=== PATIENT | female | born 2000 | race Caucasian/White ===

== ENCOUNTER 2019-04-03 00:35 | Emergency (ER) | payer OTHER ==
--- NOTE | 2019-04-03 00:46 | ED ---
Substance Abuse/Use - HPI Summary HPI Summary: LEVEL 5 CAVEAT: HPI Limited due to patient intoxication. This patient is a 18 year old female presenting to [facility] with a chief complaint of ETOH intoxication. The patient was found in [facility]. She is not responding to questions. - History Of Current Complaint Stated Complaint: ETOH PER EMS Hx Obtained From: EMS Hx From Patient Unobtainable Due To: Altered Mental Status - Allergies/Home Medications Allergies/Adverse Reactions: Allergies Allergy/AdvReac Type Severity Reaction Status Date / Time Unable to Assess Allergy Verified 04/03/19 00:46 Home Medications: Home Medications Unobtainable 04/03/19 [History Confirmed 04/03/19] PMH/Surg Hx/FS Hx/Imm Hx - Additional Comments History Additional Comments: LEVEL 5 CAVEAT: PMH Limited due to patient intoxication. Review of Systems - ROS Summary Review of Systems Summary: LEVEL 5 CAVEAT: ROS Limited due to patient intoxication. Neurological: Other - AMS due to ETOH All Other Systems Reviewed And Are Negative: No Physical Exam - Summary Physical Exam Summary: Appearance: Well-appearing, Well-nourished, lying in bed comfortably Skin: Warm, dry, no obvious rash Eyes: sclera anicteric, no conjunctival pallor ENT: mucous membranes moist, pharynx appears normal Neck: Supple, nontender Respiratory: Clear to auscultation, no signs of respiratory distress Cardiovascular: Normal S1, S2. No murmurs. Normal distal pulses in tibial and radial bilaterally. Abdomen: Soft, nontender, normal active bowel sounds present Musculoskeletal: Normal, Strength/ROM Intact Neurological: Responds to verbal stimuli, but does not answer questions or follow commands. Psychiatric: affect is normal, does not appear anxious or depressed Triage Information Reviewed: Yes Vital Signs Reviewed: Yes Completion Of Physical Exam Limited Due To: Altered Mental Status Diagnostics - Laboratory Lab Statement: Any lab studies that have been ordered have been reviewed, and results considered in the medical decision making process. - EKG 2245 Cardiac Rate: Bradycardia - 45 BPM EKG Rhythm: Sinus Bradycardia Course/Dx - Course Course Of Treatment: This patient is a 18 year old female brought in by presenting to [facility] with a chief complaint of ETOH intoxication. The patient will be signed out to Dr. Ortega at shift change pending sobriety. - Diagnoses Provider Diagnoses: Alcohol intoxication Discharge ED - Sign-Out/Discharge Documenting (check all that apply): Sign-Out Patient Signing out patient TO: Will Ortega - Pending sobriety at shift change 0700. Patient Received Moderate/Deep Sedation with Procedure: No - Discharge Plan Condition: Stable Disposition: HOME Patient Education Materials: Alcohol Intoxication (ED) Referrals: [facility] [Outside] - 3 Days Additional Instructions: Follow up with [facility] within 3 days. Return to emergency department for new or worsening symptoms. - Billing Disposition and Condition Condition: STABLE Disposition: Home - Attestation Statements Document Initiated by Dylanibe: Yes Documenting Scribe: Trip Brown Provider For Whom Jeannette is Documenting (Include Credential): Will Villarreal MD Scribe Attestation: Trip Paniagua scribed for Will Villarreal MD on 04/04/19 at 0407. Scribe Documentation Reviewed: Yes Provider Attestation: The documentation as recorded by the Trip maria accurately reflects the service I personally performed and the decisions made by me, Will Villarreal MD Status of Scribe Document: Viewed
--- NOTE | 2019-04-03 07:52 | ED ---
Progress - Progress Note Progress Note: Patient signed out from Dr. Villarreal to Dr. Ortega upon shift change at 07:00 on 04/03/19. Patient pending sobriety test. Course/Dx - Course Course Of Treatment: Ms. Alvarez was awake and clinically sober about 9 AM. She is going to go home with sober friends. - Diagnoses Provider Diagnoses: Alcohol intoxication Discharge ED - Sign-Out/Discharge Documenting (check all that apply): Patient Departure - discharge Patient Received Moderate/Deep Sedation with Procedure: No - Discharge Plan Condition: Stable Disposition: HOME Patient Education Materials: Alcohol Intoxication (ED) Referrals: [facility] [Outside] - 3 Days Additional Instructions: Follow up with [facility] within 3 days. Return to emergency department for new or worsening symptoms. - Billing Disposition and Condition Condition: STABLE Disposition: Home - Attestation Statements Document Initiated by Dylanibe: Yes Documenting Scribe: Cindy Vallecillo Provider For Whom Scribe is Documenting (Include Credential): Will Ortega MD Scribe Attestation: Cindy Paniagua scribed for Will Ortega MD on 04/03/19 at 0859. Scribe Documentation Reviewed: Yes Provider Attestation: The documentation as recorded by the Cindy maria accurately reflects the service I personally performed and the decisions made by Will sarmiento MD Status of Scribe Document: Viewed
[2019-04-03 08:35] VITALS: BP 108/68
== END 2019-04-03 09:24 | disposition home or self-care (01) ==
LOC: ED 00:35
DX: F10.129 Alcohol abuse with intoxication, unspecified (principal); R00.1 Bradycardia, unspecified
CPT/HCPCS: 99282

== ENCOUNTER 2019-08-19 22:51 | Emergency (ER) | payer OTHER ==
[2019-08-19 23:05] VITALS: BP 148/88
--- NOTE | 2019-08-19 23:17 | ED ---
Lower Extremity - HPI Summary HPI Summary: 19-year-old female with no significant past medical history presents to the emergency department today complaining of left ankle swelling and pain. Patient states she recently bought a new parishes which gave her blister. She states shortly after this blister developed she noticed the medial aspect of her left ankle began swelling and becoming more painful. Patient has full range of motion of her ankle bilaterally and is complaining of one out of 10 pain. There is noted swelling to left ankle with no evidence of erythema. The patient otherwise feels well and denies fever, chest pain, abdominal pain, pain with urination, rash. - History of Current Complaint Chief Complaint: EDExtremityLower Stated Complaint: SWOLLEN LEFT ANKLE PER PT Time Seen by Provider: 08/19/19 23:17 Hx Obtained From: Patient Onset of Pain: Days Onset/Duration: Days Severity Initially: Mild Severity Currently: Mild Pain Intensity: 1 Pain Scale Used: 0-10 Numeric Timing: Constant Location: Is Discrete @ - Left ankle Character Of Pain: Aching Associated Signs And Symptoms: Positive: Swelling, Redness Aggravating Factor(s): Standing, Ambulation, Movement, Weight Bearing, Stairs Alleviating Factor(s): Rest, Elevation Able to Bear Weight: Yes - Allergies/Home Medications Allergies/Adverse Reactions: Allergies Allergy/AdvReac Type Severity Reaction Status Date / Time No Known Allergies Allergy Verified 08/19/19 23:03 PMH/Surg Hx/FS Hx/Imm Hx Infectious Disease History: No Infectious Disease History: Reports: Traveled Outside the [place] in Last 30 Days - Social History Alcohol Use: Occasionally Substance Use Type: Reports: None Smoking Status (MU): Unknown if Ever Smoked Review of Systems Constitutional: Negative Eyes: Negative ENT: Negative Cardiovascular: Negative Respiratory: Negative Gastrointestinal: Negative Genitourinary: Negative Positive: Myalgia, Edema Skin: Negative Neurological: Negative Psychological: Normal All Other Systems Reviewed And Are Negative: Yes Physical Exam - Summary Physical Exam Summary: Mild edema and eryrhema noted to the left ankle superior to the medial malleolus. Tenderness and mild edema noted with palpation of this area. Triage Information Reviewed: Yes Vital Signs On Initial Exam: Initial Vitals Temp Pulse Resp BP Pulse Ox 98.6 F 78 16 148/88 100 08/19/19 23:01 08/19/19 23:01 08/19/19 23:01 08/19/19 23:01 08/19/19 23:01 Vital Signs Reviewed: Yes Appearance: Positive: Well-Appearing, No Pain Distress, Well-Nourished Skin: Positive: Warm, Skin Color Reflects Adequate Perfusion Eyes: Positive: EOMI, JACQUES ENT: Positive: Hearing grossly normal Respiratory/Lung Sounds: Positive: Clear to Auscultation, Breath Sounds Present Cardiovascular: Positive: RRR, S1, S2 Musculoskeletal: Positive: Strength/ROM Intact Neurological: Positive: Sensory/Motor Intact, Alert, Oriented to Person Place, Time, Normal Gait, Facial Symmetry, Speech Normal Psychiatric: Positive: Normal, Affect/Mood Appropriate AVPU Assessment: Alert Procedures - Sedation Patient Received Moderate/Deep Sedation with Procedure: No Diagnostics - Vital Signs Vital Signs Temp Pulse Resp BP Pulse Ox 08/19/19 23:01 98.6 F 78 16 148/88 100 - Laboratory Lab Statement: Any lab studies that have been ordered have been reviewed, and results considered in the medical decision making process. Lower Extremity Course/Dx - Course Course Of Treatment: Pt evaluated for left ankle swelling. Vitals noted and stable. PE and hostory consistent with mild abscess of left ankle. Area not able to be drained. PT given antibiotics, doxycycline BID for symptoms and told to take ibuprofen for pain. PT discharged with outpatient followup. - Diagnoses Differential Diagnosis/HQI/PQRI: Positive: Cellulitis, Contusion, Fracture ( Closed), Infection, Sprain, Strain Provider Diagnoses: Ankle pain, left Discharge ED - Sign-Out/Discharge Documenting (check all that apply): Patient Departure - Discharge Plan Condition: Stable Disposition: HOME Prescriptions: DOXYcycline CAP(*) [DOXYcycline 100MG CAP(*)] 100 mg PO BID 7 Days #14 cap Patient Education Materials: Abscess (ED) Referrals: No Primary Care Phys,NOPCP [Primary Care Provider] - Additional Instructions: Take doxycycline 100 mg twice daily for 7 days. Take 600 mg ibuprofen every 6 hours as needed for swelling and pain. Please follow up with [facility] on Wednesday for further evaluation and management. Please return to this emergency Department immediately if you develop any new or worsening symptoms. - Billing Disposition and Condition Condition: STABLE Disposition: Home
[2019-08-19] MEDS ORDERED: DOXYcycline CAP(*) 100 MG PO ONE (23:38)
== END 2019-08-19 23:50 | disposition home or self-care (01) ==
LOC: ED 22:51
DX: M25.572 Pain in left ankle and joints of left foot (principal); R21 Rash and other nonspecific skin eruption
CPT/HCPCS: 99281; A9270-GY